=== PATIENT | female | born 1945 | race Caucasian/White ===

== ENCOUNTER 2023-11-08 11:27 | Inpatient (IN) | payer BC, OTHER ==
[2023-11-08 12:18] LABS: BASO % 0.6 % (0-2.0); EOS % 2.7 % (0-4.5); HEMATOCRIT 43.3 % (32.4-45.2); HEMOGLOBIN 14.5 GM/dL (10.7-15.3); LYMPH % 27.9 % (8-40); MCH 28.2 pg (25.7-33.7); MCHC 33.3 g/dl (32.0-36.0); MEAN CELL VOLUME 84.5 fl (80-96); MEAN PLT VOLUME 7.8 fl (7.5-11.1); MONO % 10.6 % (3.8-10.2); NEUT % 58.2 % (42.8-82.8); PLATELET COUNT 333 10^3/uL (134-434); RBC 5.13 M/mm3 (3.60-5.2); RDW 12.9 % (11.6-15.6); WHITE BLOOD COUNT 8.1 K/mm3 (4.0-10.0)
[2023-11-08 12:23] LABS: INR 1.03 (0.83-1.09); PROTHROMBIN TIME (PATIENT) 11.9 SEC (9.7-13.0)
[2023-11-08 12:25] LABS: ACTIVATED PTT 31.6 SECONDS (25.2-36.5)
[2023-11-08 12:43] LABS: POTASSIUM 4.4 mmol/L (3.5-5.1)
[2023-11-08 12:45] LABS: ALBUMIN 3.6 g/dl (3.4-5.0); BLOOD UREA NITROGEN 14.3 mg/dL (7-18); CALCIUM 10.1 mg/dL (8.5-10.1)
[2023-11-08 12:49] LABS: CREATININE 0.7 mg/dL (0.55-1.3)
[2023-11-08 12:50] LABS: BILIRUBIN,TOTAL 0.5 mg/dL (0.2-1); TOT PROT 7.8 g/dl (6.4-8.2)
[2023-11-08 16:02] LABS: EPI CELLS 6 /uL (0-25.1); HYALINE CASTS 1 /uL (0-3.1); URINE APPEARANCE CLEAR; URINE BACTERIA 233 /uL (0-1359); URINE BILIRUBIN NEGATIVE (NEGATIVE); URINE COLOR YELLOW; URINE GLUCOSE (UA) 2+ (NEGATIVE); URINE KETONE TRACE (NEGATIVE); URINE LEUK ESTERASE 1+ (NEGATIVE); URINE NITRITE NEGATIVE (NEGATIVE); URINE PROTEIN NEGATIVE (NEGATIVE); URINE WBC 121 /uL (0-25.8)
[2023-11-08] MEDS ORDERED: CEFTRIAXONE 1,000 MG in DEXTROSE 5%-WATER - 50 ML IVPB ONE (16:47)
[2023-11-08] MEDS ORDERED: CEFTRIAXONE 1 GM/50 ML BAG ONE (17:04)
[2023-11-08 17:07] LABS: URINE CRYSTALS FEW /hpf
[2023-11-08] MEDS ORDERED: SODIUM CHLORIDE 0.45% 1,000 ML IV SCH (20:00)
[2023-11-08] MEDS ORDERED: amLODIPine BESYLATE 10 MG TABLET (FP) ONE (20:19)
[2023-11-08] MEDS: amLODIPine BESYLATE 10 MG TABLET (FP) PO SCH (20:26)
[2023-11-08] MEDS: metFORMIN HCL 500 MG TABLET (FP) PO SCH (23:21)
[2023-11-08] MEDS: INSULIN SLIDING SCALE (NOVOLOG) 1 VIAL SQ SCH (23:25)
[2023-11-09 00:12] VITALS: BMI 21.3
[2023-11-09] MEDS: metFORMIN HCL 500 MG TABLET (FP) PO SCH ×2 (07:08→21:47)
[2023-11-09] MEDS: INSULIN SLIDING SCALE (NOVOLOG) 1 VIAL SQ SCH ×4 (07:08→21:48)
[2023-11-09 08:13] LABS: BASO % 0.5 % (0-2.0); EOS % 4.2 % (0-4.5); HEMATOCRIT 39.3 % (32.4-45.2); HEMOGLOBIN 13.2 GM/dL (10.7-15.3); LYMPH % 31.6 % (8-40); MCH 28.3 pg (25.7-33.7); MCHC 33.5 g/dl (32.0-36.0); MEAN CELL VOLUME 84.6 fl (80-96); MONO % 9.8 % (3.8-10.2); NEUT % 53.9 % (42.8-82.8); PLATELET COUNT 313 10^3/uL (134-434); RBC 4.65 M/mm3 (3.60-5.2); RDW 12.9 % (11.6-15.6); WHITE BLOOD COUNT 7.1 K/mm3 (4.0-10.0)
[2023-11-09 08:28] LABS: POTASSIUM 4.2 mmol/L (3.5-5.1)
[2023-11-09 08:47] LABS: ALBUMIN 3.1 g/dl (3.4-5.0); BILIRUBIN,TOTAL 0.4 mg/dL (0.2-1); BLOOD UREA NITROGEN 14.2 mg/dL (7-18); TOT PROT 6.7 g/dl (6.4-8.2)
[2023-11-09 08:48] LABS: CALCIUM 9.2 mg/dL (8.5-10.1)
[2023-11-09 08:54] LABS: CREATININE 0.6 mg/dL (0.55-1.3)
[2023-11-09] MEDS ORDERED: LOSARTAN POTASSIUM 50 MG TABLET PO SCH (10:00)
[2023-11-09] MEDS: ENOXAPARIN NA (PORCINE) 40 MG/0.4 ML DISP.SYRIN SQ SCH (10:10)
[2023-11-09] MEDS: amLODIPine BESYLATE 10 MG TABLET (FP) PO SCH (10:10)
[2023-11-09] MEDS: CEFTRIAXONE 1 GM in DEXTROSE 5%-WATER - 50 ML IVPB SCH (11:54)
[2023-11-09] MEDS: ASPIRIN COATED 81 MG TABLET.EC PO SCH (17:00)
[2023-11-09] MEDS: ATORVASTATIN CA 80 MG TABLET (FP) PO SCH (21:47)
[2023-11-09] MEDS ORDERED: ATORVASTATIN CA 40 MG TABLET (FP) PO SCH (22:00)
[2023-11-10] MEDS: INSULIN SLIDING SCALE (NOVOLOG) 1 VIAL SQ SCH ×4 (06:29→21:15)
[2023-11-10] MEDS: metFORMIN HCL 500 MG TABLET (FP) PO SCH ×2 (06:29→21:12)
[2023-11-10 08:29] LABS: BASO % 0.6 % (0-2.0); EOS % 3.3 % (0-4.5); HEMATOCRIT 41.1 % (32.4-45.2); HEMOGLOBIN 13.8 GM/dL (10.7-15.3); LYMPH % 27.9 % (8-40); MCH 28.7 pg (25.7-33.7); MCHC 33.6 g/dl (32.0-36.0); MEAN CELL VOLUME 85.3 fl (80-96); MONO % 10.3 % (3.8-10.2); NEUT % 57.9 % (42.8-82.8); PLATELET COUNT 314 10^3/uL (134-434); RBC 4.81 M/mm3 (3.60-5.2); RDW 12.8 % (11.6-15.6); WHITE BLOOD COUNT 9.1 K/mm3 (4.0-10.0)
[2023-11-10 08:43] LABS: POTASSIUM 3.9 mmol/L (3.5-5.1)
[2023-11-10 08:57] LABS: ALBUMIN 3.1 g/dl (3.4-5.0); BLOOD UREA NITROGEN 12.8 mg/dL (7-18); CALCIUM 9.5 mg/dL (8.5-10.1)
[2023-11-10 08:59] LABS: CREATININE 0.7 mg/dL (0.55-1.3)
[2023-11-10 09:01] LABS: BILIRUBIN,TOTAL 0.5 mg/dL (0.2-1); TOT PROT 6.7 g/dl (6.4-8.2)
[2023-11-10] MEDS: ENOXAPARIN NA (PORCINE) 40 MG/0.4 ML DISP.SYRIN SQ SCH ×2 (09:09→11:58)
[2023-11-10] MEDS: ASPIRIN COATED 81 MG TABLET.EC PO SCH (09:09)
[2023-11-10] MEDS: CEFTRIAXONE 1 GM in DEXTROSE 5%-WATER - 50 ML IVPB SCH (09:09)
[2023-11-10] MEDS ORDERED: CEFTRIAXONE 1 GM in DEXTROSE 5%-WATER - 50 ML IVPB SCH (10:00)
[2023-11-10] MEDS: amLODIPine BESYLATE 10 MG TABLET (FP) PO SCH (11:55)
[2023-11-10] MEDS: LOSARTAN POTASSIUM 50 MG TABLET PO SCH (11:55)
[2023-11-10] MEDS: ATORVASTATIN CA 80 MG TABLET (FP) PO SCH (21:13)
[2023-11-11] MEDS ORDERED: ACETAMINOPHEN 325 MG TABLET (FP) PO PRN (03:02)
[2023-11-11] MEDS: INSULIN SLIDING SCALE (NOVOLOG) 1 VIAL SQ SCH ×4 (06:23→22:54)
[2023-11-11] MEDS: metFORMIN HCL 500 MG TABLET (FP) PO SCH ×2 (06:24→22:54)
[2023-11-11] MEDS: ENOXAPARIN NA (PORCINE) 40 MG/0.4 ML DISP.SYRIN SQ SCH (09:22)
[2023-11-11] MEDS: ASPIRIN COATED 81 MG TABLET.EC PO SCH (09:22)
[2023-11-11] MEDS: amLODIPine BESYLATE 10 MG TABLET (FP) PO SCH (09:22)
[2023-11-11] MEDS: LOSARTAN POTASSIUM 50 MG TABLET PO SCH (09:22)
[2023-11-11] MEDS ORDERED: CEFTRIAXONE 1 GM in DEXTROSE 5%-WATER - 50 ML IVPB SCH (10:00)
[2023-11-11] MEDS: ATORVASTATIN CA 80 MG TABLET (FP) PO SCH (22:54)
[2023-11-12] MEDS: metFORMIN HCL 500 MG TABLET (FP) PO SCH ×2 (06:31→21:39)
[2023-11-12] MEDS: INSULIN SLIDING SCALE (NOVOLOG) 1 VIAL SQ SCH ×4 (06:31→21:32)
[2023-11-12] MEDS: ASPIRIN COATED 81 MG TABLET.EC PO SCH (10:11)
[2023-11-12] MEDS: amLODIPine BESYLATE 10 MG TABLET (FP) PO SCH (10:11)
[2023-11-12] MEDS: LOSARTAN POTASSIUM 50 MG TABLET PO SCH (10:11)
[2023-11-12] MEDS: ENOXAPARIN NA (PORCINE) 40 MG/0.4 ML DISP.SYRIN SQ SCH (10:11)
[2023-11-12] MEDS: ATORVASTATIN CA 80 MG TABLET (FP) PO SCH (21:39)
[2023-11-13 02:29] VITALS: RESP 18
[2023-11-13 05:54] VITALS: BP 140/67; PULSE 91; TEMP 97.9
[2023-11-13] MEDS: INSULIN SLIDING SCALE (NOVOLOG) 1 VIAL SQ SCH (06:36)
[2023-11-13] MEDS: metFORMIN HCL 500 MG TABLET (FP) PO SCH (06:36)
== END 2023-11-13 09:11 | DRG 65 ==
LOC: JER 11:27 → JERBED 16:44 → J7W 21:01 → J4S 11-09 16:50
PROVIDERS: ADMIT Internal Medicine; ATTEND Internal Medicine
DX: I63.9 Cerebral infarction, unspecified (principal); G81.93 Hemiplegia, unspecified affecting right nondominant side; I10 Essential (primary) hypertension; E11.9 Type 2 diabetes mellitus without complications; E78.5 Hyperlipidemia, unspecified; R29.702 NIHSS score 2
CPT/HCPCS: 0241U-QW; 36415; 70450-TC; 70551-TC; 71045-TC-FY; 80053; 80061; 81003; 82962; 83036; 84484; 85025; 85610; 85730; 86850; 86900; 86901; 87086; 93005; 93010; 93306-TC; 93880-TC; 97116-GP; 97161-GP; 99285-25

== ENCOUNTER 2024-02-03 12:04 | Emergency (ER) | payer BC, OTHER ==
[2024-02-03 12:58] VITALS: BP 144/59; PULSE 79; RESP 18; TEMP 98.1; BMI 25.2
[2024-02-03] MEDS ORDERED: ACETAMINOPHEN INJECTION 100 ML IVPB ONE (14:59)
[2024-02-03] MEDS ORDERED: LIDOCAINE 4% PATCH TP ONE (14:59)
[2024-02-03] MEDS: ACETAMINOPHEN 1000 MG/100 ML BAG IVPB ONE (15:12)
[2024-02-03] MEDS: LIDOCAINE 4% PATCH TP ONE (15:12)
[2024-02-03 15:22] LABS: BASO % 0.7 % (0-2.0); EOS % 2.5 % (0-4.5); HEMATOCRIT 41.3 % (32.4-45.2); LYMPH % 29.9 % (8-40); MCH 28.5 pg (25.7-33.7); MCHC 33.9 g/dl (32.0-36.0); MEAN CELL VOLUME 84.1 fl (80-96); MEAN PLT VOLUME 7.3 fl (7.5-11.1); MONO % 9.9 % (3.8-10.2); PLATELET COUNT 441 10^3/uL (134-434); RBC 4.92 M/mm3 (3.60-5.2); RDW 14.6 % (11.6-15.6); WHITE BLOOD COUNT 8.7 K/mm3 (4.0-10.0)
[2024-02-03 15:40] LABS: POTASSIUM 4.1 mmol/L (3.5-5.1)
[2024-02-03 15:42] LABS: CALCIUM 10.7 mg/dL (8.5-10.1)
[2024-02-03 15:43] LABS: ALBUMIN 3.5 g/dl (3.4-5.0); BLOOD UREA NITROGEN 16.4 mg/dL (7-18)
[2024-02-03 15:45] LABS: CREATININE 0.5 mg/dL (0.55-1.3)
[2024-02-03 15:47] LABS: BILIRUBIN,TOTAL 0.5 mg/dL (0.2-1)
[2024-02-03] MEDS ORDERED: LIDOCAINE PATCH REMOVAL MC SCH (22:00)
== END 2024-02-03 21:44 | disposition left against medical advice (07) ==
LOC: JER 12:04
PROC: 3E033NZ Introduction of Analgesics, Hypnotics, Sedatives into Peripheral Vein, Percutaneous Approach (ICD-10-PCS; principal; 2024-02-03)
DX: M54.50 Low back pain, unspecified (principal); M54.6 Pain in thoracic spine; M25.552 Pain in left hip; W01.198A Fall on same level from slipping, tripping and stumbling with subsequent striking against other object, initial encounter
CPT/HCPCS: 36415; 72170-TC-FY; 73502-TC-LT-FY; 80053; 82550; 82962; 85025; 99284-25; J0131

== ENCOUNTER 2024-03-11 23:00 | Emergency (ER) | payer OTHER ==
[2024-03-11 23:06] VITALS: BMI 22.2
[2024-03-12] MEDS ORDERED: LIDOCAINE 4% PATCH TP ONE (00:34)
[2024-03-12] MEDS ORDERED: ACETAMINOPHEN 325 MG TABLET (FP) ONE (00:34)
[2024-03-12] MEDS: LIDOCAINE 5% TOPICAL PATCH TP ONE (00:38)
[2024-03-12] MEDS: ACETAMINOPHEN 325 MG TABLET (FP) PO ONE (00:39)
[2024-03-12 01:28] LABS: BASO % 0.7 % (0-2.0); EOS % 2.9 % (0-4.5); HEMATOCRIT 39.1 % (32.4-45.2); HEMOGLOBIN 13.1 GM/dL (10.7-15.3); LYMPH % 28.3 % (8-40); MCH 28.6 pg (25.7-33.7); MCHC 33.4 g/dl (32.0-36.0); MEAN CELL VOLUME 85.5 fl (80-96); MEAN PLT VOLUME 7.4 fl (7.5-11.1); MONO % 8.7 % (3.8-10.2); NEUT % 59.4 % (42.8-82.8); PLATELET COUNT 363 10^3/uL (134-434); RBC 4.58 M/mm3 (3.60-5.2); RDW 14.1 % (11.6-15.6); WHITE BLOOD COUNT 11.2 K/mm3 (4.0-10.0)
[2024-03-12 01:49] LABS: BLOOD UREA NITROGEN 20.1 mg/dL (7-18); CALCIUM 10.3 mg/dL (8.5-10.1); MAGNESIUM 1.8 mg/dL (1.8-2.4)
[2024-03-12] MEDS: LIDOCAINE PATCH REMOVAL MC SCH (01:49)
[2024-03-12 01:50] LABS: ALBUMIN 3.3 g/dl (3.4-5.0)
[2024-03-12 01:52] LABS: CREATININE 0.8 mg/dL (0.55-1.3)
[2024-03-12 01:54] LABS: BILIRUBIN,TOTAL 0.2 mg/dL (0.2-1)
[2024-03-12] MEDS: SODIUM CHLORIDE 0.9% 500 ML INFUS.BAG IV ONE (02:33)
[2024-03-12 05:33] VITALS: BP 143/79; PULSE 75; RESP 16; TEMP 97.6
[2024-03-12 05:41] LABS: EPI CELLS 11 /uL (0-25.1); HYALINE CASTS 0 /uL (0-3.1); PH,URINE 5.5 (5.0-8.0); URINE APPEARANCE CLEAR; URINE BACTERIA 30 /uL (0-1359); URINE BILIRUBIN NEGATIVE (NEGATIVE); URINE COLOR YELLOW; URINE GLUCOSE (UA) NEGATIVE (NEGATIVE); URINE KETONE NEGATIVE (NEGATIVE); URINE LEUK ESTERASE 1+ (NEGATIVE); URINE NITRITE NEGATIVE (NEGATIVE); URINE PROTEIN NEGATIVE (NEGATIVE); URINE RBC 9 /uL (0-23.9); URINE UROBILINOGEN 0.2 mg/dL (0.2-1.0); URINE WBC 33 /uL (0-25.8)
== END 2024-03-12 07:21 | disposition home or self-care (01) ==
LOC: JER 23:00
DX: R07.81 Pleurodynia (principal)
CPT/HCPCS: 36415; 70450-TC; 71046-TC-FY; 71101-TC-LT-FY; 71250-TC; 72125-TC; 80053; 81003; 82550; 83735; 84484; 85025; 87086; 93005; 93010; 99285-25